=== PATIENT | female | born 1960 | race Hispanic/Latino ===

== ENCOUNTER 2018-04-03 19:31 | Emergency (ER) | payer OTHER ==
[2018-04-03 20:29] LABS: APPEARANCE,URINE Clear (CLEAR); BILIRUBIN,URINE Negative (NEGATIVE); COLOR,URINE Yellow (YELLOW); GLUCOSE, URINE (UA) Negative (NEGATIVE); KETONES,URINE Negative (NEGATIVE); LEUKOCYTE ESTERASE ,URINE Moderate (NEGATIVE); NITRATE,URINE Negative (NEGATIVE); OCCULT BLOOD,URINE Negative (NEGATIVE); PH,URINE 7.5 (5.0-8.0); PROTEIN,URINE Negative (NEGATIVE); UROBILINOGEN,URINE 0.2 mg/dL (0.2-1.0)
[2018-04-03 20:31] LABS: BASOPHILS % (AUTO) 0.5 % (0.0-5.0); HEMATOCRIT 40.3 % (36-48); LYMPHOCYTES % (AUTO) 33.3 % (21.0-51.0); MEAN CORPUSCULAR HEMOGLOBIN 31.2 pg (27.0-33.0); MEAN CORPUSCULAR HGB CONC 33.4 g/dL (32.0-36.0); MEAN CORPUSCULAR VOLUME 93.2 fL (79-99); MONOCYTES % (AUTO) 9.9 % (3.0-13.0); NEUTROPHILS % (AUTO) 54.3 % (40.0-77.0); PLATELET COUNT (AUTO) 287 K/uL (130-400); RED BLOOD CELL COUNT(AUTO) 4.32 MIL/uL (4.00-5.50); RED CELL DISTRIBUTION WIDTH 13.3 % (11.0-15.5); WHITE BLOOD COUNT (AUTO) 9.3 K/uL (4.8-10.8)
[2018-04-03 20:35] LABS: BACTERIA,URINE None Seen /HPF (None Seen); RBC,URINE None Seen /HPF (0-1); SQUAMOUS EPITHELIAL CELL,UR 0-2 /HPF (0-2); WBC,URINE 0-1 /HPF (0-1)
[2018-04-03 20:38] LABS: AMPHET/METH SCREEN,URINE NEGATIVE (NEGATIVE); BARBITURATE SCREEN, URINE NEGATIVE (NEGATIVE); BENZODIAZEPINES SCREEN,URINE NEGATIVE (NEGATIVE); CANNABINOID SCREEN,URINE NEGATIVE (NEGATIVE); COCAINE SCREEN,URINE NEGATIVE (NEGATIVE); OPIATE SCREEN,URINE NEGATIVE (NEGATIVE); PHENCYCLIDINE SCREEN,URINE NEGATIVE (NEGATIVE)
[2018-04-03 20:39] LABS: CREATININE 0.8 mg/dL (0.5-1.5); POTASSIUM 3.9 mmol/L (3.5-5.1)
[2018-04-03 20:51] LABS: B-TYPE NATRIURETIC PEPTIDE 8 pg/mL (0-100)
[2018-04-03 20:54] LABS: ALBUMIN 4.2 g/dL (3.5-5.0); BILIRUBIN,TOTAL 0.2 mg/dL (0.2-1.0); CREATINE KINASE MB 1.6 ng/mL (0.5-3.6); TOTAL PROTEIN, SERUM 7.7 g/dL (6.0-8.3)
== END 2018-04-03 21:26 | disposition home or self-care (01) ==
LOC: EDH 19:31
DX: R42 Dizziness and giddiness (principal); I10 Essential (primary) hypertension; Z72.0 Tobacco use
CPT/HCPCS: 36415; 71045; 80053; 80305; 81001; 82550; 82553; 83880; 85025; 93005

== ENCOUNTER 2021-09-17 12:03 | Inpatient (IN) | payer SELFPAY ==
[~2021-09-17] VITALS: Ht 154.9 cm; Wt 41.1 kg
[2021-09-17 12:42] LABS: APPEARANCE,URINE Clear (CLEAR); BILIRUBIN,URINE Negative (NEGATIVE); COLOR,URINE Yellow (YELLOW); GLUCOSE, URINE (UA) Negative (NEGATIVE); KETONES,URINE Negative (NEGATIVE); LEUKOCYTE ESTERASE ,URINE Moderate (NEGATIVE); NITRATE,URINE Negative (NEGATIVE); OCCULT BLOOD,URINE Trace (NEGATIVE); PH,URINE 6.5 (5.0-8.0); PROTEIN,URINE Negative (NEGATIVE); UROBILINOGEN,URINE 0.2 mg/dL (0.2-1.0)
[2021-09-17 12:55] LABS: BACTERIA,URINE Rare /HPF (None Seen); RBC,URINE 0-1 /HPF (0-1); SQUAMOUS EPITHELIAL CELL,UR Rare /HPF (0-2)
[2021-09-17 13:28] LABS: BASOPHILS % (AUTO) 0.7 % (0.0-5.0); EOSINOPHILS % (AUTO) 0.2 % (0.0-8.0); HEMATOCRIT 37.4 % (36-48); LYMPHOCYTES % (AUTO) 9.2 % (21.0-51.0); MEAN CORPUSCULAR HEMOGLOBIN 30.8 pg (27.0-33.0); MEAN CORPUSCULAR HGB CONC 33.2 g/dL (32.0-36.0); MEAN CORPUSCULAR VOLUME 92.8 fL (79-99); MONOCYTES % (AUTO) 5.2 % (3.0-13.0); NEUTROPHILS % (AUTO) 84.3 % (40.0-77.0); PLATELET COUNT (AUTO) 323 K/uL (130-400); RED BLOOD CELL COUNT(AUTO) 4.03 MIL/uL (4.00-5.50); RED CELL DISTRIBUTION WIDTH 12.7 % (11.0-15.5); WHITE BLOOD COUNT (AUTO) 12.3 K/uL (4.8-10.8)
[2021-09-17] MEDS ORDERED: MORPHINE 2 MG SYG IVP ONE (13:30)
[2021-09-17] MEDS ORDERED: 0.9% NACL 500ML IV.SOLN 500 ML IV ONE (13:30)
[2021-09-17] MEDS ORDERED: ONDANSETRON 4MG INJ IVP ONE (13:30)
[2021-09-17 13:43] LABS: CREATININE 0.7 mg/dL (0.5-1.5); POTASSIUM 4.5 mmol/L (3.5-5.1)
[2021-09-17 13:48] LABS: ALBUMIN 3.8 g/dL (3.5-5.0); BILIRUBIN,TOTAL 0.1 mg/dL (0.2-1.0); TOTAL PROTEIN, SERUM 7.5 g/dL (6.0-8.3)
[2021-09-17] MEDS ORDERED: KETOROLAC 30MG VIAL (30MG/ML) ONE (14:37)
[2021-09-17] MEDS ORDERED: KETOROLAC 30MG VIAL (30MG/ML) IV ONE (15:00)
[2021-09-17] MEDS ORDERED: MORPHINE 4 MG SYG ONE (15:30)
[2021-09-17] MEDS ORDERED: HYDROMORPHONE 0.5 MG SYG (0.5MG/0.5ML) ONE (17:36)
[2021-09-17] MEDS ORDERED: HYDROMORPHONE 0.5 MG SYG (0.5MG/0.5ML) IVP ONE (18:00)
[2021-09-17] MEDS ORDERED: MIDAZOLAM HCL 1 MG/ML 2ML VIAL ONE (18:00)
[2021-09-17] MEDS ORDERED: MIDAZOLAM HCL 1 MG/ML 2ML VIAL IVP ONE (18:30)
[2021-09-17] MEDS: LACTATED RINGERS 1000ML 1,000 ML IV SCH (20:08)
[2021-09-17] MEDS: CEFTRIAXONE 1G VIAL IVP SCH (20:08)
[2021-09-17] MEDS: FAMOTIDINE 20MG VIAL IV SCH (20:08)
[2021-09-17] MEDS: MORPHINE 2 MG SYG IV PRN (21:07)
[2021-09-17 23:15] VITALS: BP 157/80
[2021-09-18] VITALS (22 sets, daily range): BP systolic 146–169; BP diastolic 65–92
[2021-09-18] MEDS: MORPHINE 2 MG SYG IV PRN ×5 (00:45→23:47)
[2021-09-18] MEDS: ONDANSETRON 4MG INJ IVP PRN (00:45)
[2021-09-18] MEDS: LACTATED RINGERS 1000ML 1,000 ML IV SCH ×2 (05:00→05:04)
[2021-09-18 05:28] LABS: HEMATOCRIT 39.2 % (36-48); MEAN CORPUSCULAR HEMOGLOBIN 30.7 pg (27.0-33.0); MEAN CORPUSCULAR HGB CONC 33.4 g/dL (32.0-36.0); MEAN CORPUSCULAR VOLUME 91.8 fL (79-99); RED BLOOD CELL COUNT(AUTO) 4.27 MIL/uL (4.00-5.50); RED CELL DISTRIBUTION WIDTH 12.7 % (11.0-15.5); WHITE BLOOD COUNT (AUTO) 14.9 K/uL (4.8-10.8)
[2021-09-18 05:34] LABS: CREATININE 0.6 mg/dL (0.5-1.5); POTASSIUM 3.9 mmol/L (3.5-5.1)
[2021-09-18] MEDS: FAMOTIDINE 20MG VIAL IV SCH ×2 (08:54→21:00)
[2021-09-18] MEDS: CEFTRIAXONE 1G VIAL IVP SCH ×2 (19:30→20:18)
[2021-09-18] MEDS ORDERED: NEOSTIGMINE 5MG/5ML SYR IV ONE (19:48)
[2021-09-18] MEDS ORDERED: SUCCINYLCHOLINE CHLORIDE 20 MG/ML 10 ML VIAL ONE (19:48)
[2021-09-18] MEDS ORDERED: GLYCOPYRROLATE 1 MG/5 ML SYRINGE ONE (19:48)
[2021-09-18] MEDS ORDERED: ONDANSETRON 4MG INJ ONE (19:48)
[2021-09-18] MEDS ORDERED: PROPOFOL 10 MG/ML 20ML VIAL IV ONE (19:48)
[2021-09-18] MEDS ORDERED: LIDOCAINE PF 100MG/5ML (2%) SYRINGE 5ML ONE (19:48)
[2021-09-18] MEDS ORDERED: DEXAMETHASONE SOD PHOSPHATE 4 MG/ML 1ML VIAL ONE (19:48)
[2021-09-18] MEDS ORDERED: ROCURONIUM 10MG/1ML SYR 10 MG/ML ML ONE (19:48)
[2021-09-18] MEDS ORDERED: FENTANYL CITRATE PF 50 MCG/1 ML 2ML VIAL ONE (19:50)
[2021-09-18] MEDS ORDERED: MIDAZOLAM HCL 1 MG/ML 2ML VIAL ONE (19:50)
[2021-09-18] MEDS ORDERED: BUPIVACAINE/PF 0.25% 30ML VIAL IJ ONE (19:52)
[2021-09-18] MEDS ORDERED: LIDOCAINE HCL 1% 20 ML VIAL ONE (19:52)
[2021-09-18] MEDS ORDERED: MEPERIDINE-PF 25 MG/ML SYG ONE ×2 (21:48→21:58)
[2021-09-19] VITALS (10 sets, daily range): BP systolic 119–168; BP diastolic 56–82
[2021-09-19] MEDS: LACTATED RINGERS 1000ML 1,000 ML IV SCH ×3 (01:07→16:39)
[2021-09-19] MEDS: MORPHINE 2 MG SYG IV PRN ×3 (03:20→16:39)
[2021-09-19 04:39] LABS: HEMATOCRIT 36.4 % (36-48); MEAN CORPUSCULAR HEMOGLOBIN 30.9 pg (27.0-33.0); MEAN CORPUSCULAR HGB CONC 35.2 g/dL (32.0-36.0); MEAN CORPUSCULAR VOLUME 87.9 fL (79-99); RED BLOOD CELL COUNT(AUTO) 4.14 MIL/uL (4.00-5.50); RED CELL DISTRIBUTION WIDTH 12.4 % (11.0-15.5); WHITE BLOOD COUNT (AUTO) 21.9 K/uL (4.8-10.8)
[2021-09-19 04:47] LABS: CREATININE 0.6 mg/dL (0.5-1.5); POTASSIUM 3.6 mmol/L (3.5-5.1)
[2021-09-19] MEDS: FAMOTIDINE 20MG VIAL IV SCH ×2 (08:31→20:54)
[2021-09-19] MEDS: ONDANSETRON 4MG INJ IVP PRN (16:38)
[2021-09-19] MEDS: CEFTRIAXONE 1G VIAL IVP SCH (20:54)
[2021-09-20 03:34] VITALS: BP 113/64
[2021-09-20 04:53] LABS: HEMATOCRIT 32.9 % (36-48); MEAN CORPUSCULAR HEMOGLOBIN 30.6 pg (27.0-33.0); MEAN CORPUSCULAR HGB CONC 33.7 g/dL (32.0-36.0); MEAN CORPUSCULAR VOLUME 90.6 fL (79-99); RED BLOOD CELL COUNT(AUTO) 3.63 MIL/uL (4.00-5.50); RED CELL DISTRIBUTION WIDTH 12.6 % (11.0-15.5); WHITE BLOOD COUNT (AUTO) 11.8 K/uL (4.8-10.8)
[2021-09-20 05:09] LABS: CREATININE 0.6 mg/dL (0.5-1.5); POTASSIUM 3.6 mmol/L (3.5-5.1)
[2021-09-20] MEDS: ONDANSETRON 4MG INJ IVP PRN (05:45)
[2021-09-20] MEDS: MORPHINE 2 MG SYG IV PRN (05:45)
[2021-09-20] MEDS: LACTATED RINGERS 1000ML 1,000 ML IV SCH (07:01)
[2021-09-20] MEDS ORDERED: ACET1TAB25 PO (07:36)
[2021-09-20 08:00] VITALS: BP 117/55
[2021-09-20] MEDS: FAMOTIDINE 20MG VIAL IV SCH (09:09)
[2021-09-20 11:46] VITALS: BP 131/64
[2021-09-20] MEDS ORDERED: AMOX-429 PO (13:28)
[2021-09-20 16:00] VITALS: BP 113/59
== END 2021-09-20 16:30 | disposition home or self-care (01) | DRG 351 ==
LOC: EDH 12:03 → EDHIP 12:04 → 3BH 21:29
PROVIDERS: ADMIT Hospitalist; ATTEND Hospitalist
PROC: 0YQ80ZZ Repair Left Femoral Region, Open Approach (ICD-10-PCS; principal; 2021-09-18 20:32)
DX: K41.30 Unilateral femoral hernia, with obstruction, without gangrene, not specified as recurrent (principal); N39.0 Urinary tract infection, site not specified; K59.00 Constipation, unspecified; Z20.822 Contact with and (suspected) exposure to COVID-19; F17.210 Nicotine dependence, cigarettes, uncomplicated; Z90.49 Acquired absence of other specified parts of digestive tract; Z81.8 Family history of other mental and behavioral disorders
CPT/HCPCS: 36415; 71045; 74176; 80048; 80053; 81001; 82550; 83605; 83690; 84484; 85025; 85027; 86850; 86900; 86901; 87088; 87635; 93005; A4344; A4606; G0378; J0330; J0696; J1100; J1170; J1885; J2001; J2175; J2250; J2270; J2405; J2704; J2710; J3010; J3490; J7120

== ENCOUNTER 2024-11-12 20:02 | Emergency (ER) | payer SELFPAY ==
[~2024-11-12] VITALS: Ht 152.4 cm; Wt 59.0 kg
[~2024-11-12 20:02] MED LIST: ACET-2079 PO; AMOX-429 PO
--- NOTE | 2024-11-12 20:27 | ERN ---
ED Note History of Present Illness Stated Complaint: SEIZURE AT 1900 Chief Complaint: Seizure Time Seen by MD: 20:09 Dictation: This is a 64-year-old female who was brought into the emergency room accompanied by her son who indicated that patient had a witnessed seizure at 7:00 p.m.. Apparently similar episode with a symmetric tonic-clonic activity happened a few years ago. Seizure lasted about 1-1-1/2 minutes. She does not have a known history of seizure activity. No history of any head trauma no fevers chills or rigors. She is not on any regular medications. No history of any alcohol abuse. Temperature 97.3 pulse 127 respirations 20 blood pressure 167/84 with a pulse oximetry of 95% on room air Past medical history significant for a incarcerated inguinal hernia repair. She is also a daily cigarette smoker Allergies: Coded Allergies: No Known Drug Allergies (Verified Allergy, 06/24/12) Home Meds Active Scripts Amoxicillin/Potassium Clav (Augmentin 875-125 Tablet) 1 Each Tablet, 1 EACH PO BID, #10 TAB 0 Refills Prov:TAHIR HAILE 09/20/21 Acetaminophen with Codeine (Acetaminophen-Cod #3 Tablet) 1 Each Tablet, 1 EACH PO Q6HPRN PRN for MODERATE PAIN (4-6), #8 TAB 0 Refills Prov:TAHIR HAILE 09/20/21 Past Medical History Past Medical History: No Pertinent History Surgical History: Other Surgical History Other: HERNIA Family History: Negative Social History: Smokers, Lives with family History: Not Applicable RN Note Reviewed/Agreed w/PFSH: Yes Review of System Dictation Constitutional: Negative for fever,chills, and weight loss Eyes: Negative for injury, pain,redness, and discharge ENT: Negative for injury,pain or swelling Cardiovascular: Negative for chest pain, palpitations, and edema Respiratory: Negative for shortness of breath, cough, and wheezing, Abdomen/GI: Negative for abdominal pain, nausea, vomiting, diarrhea, and constipation Back: Negative for injury and pain : Negative for injury, bleeding and discharge MS/Extremity: Negative for injury and deformity Skin: Negative for rash, and discoloration Neuro: Negative for headache, weakness, numbness, tingling, and seizure Psych: Negative for suicide ideation, homicidal ideation, and hallucinations Initial Vital Sign VS Vital Signs Date Time Temp Pulse Resp B/P (MAP) Pulse Ox O2 Delivery O2 Flow Rate FiO2 11/12/24 20:03 97.3 127 20 167/84 95 Room Air 11/12/24 20:52 0 21 Physical Exam Dictation General: awake, alert, NAD Head/Face: Normocephalic, atraumatic Eyes: PERRL, EOMI, vision at baseline ENT: oral cavity clear, TMs clear, no signs of infection Neck: Trachea midline, supple, no nuchal rigidity Cardiovascular: RRR, normal S1/S2, No MRGs, no JVD Respiratory: CTAB, no respiratory distress, No rales or wheezes Abdomen: Soft, non-tender, non-distended, normal bowel sounds, no guarding or rebound. Skin: Warm, dry, normal turgor, no rash MS/Extremity: Pulses equal, no cyanosis, neurovascular intact, FROM Neuro: COAx4, GCS 15, strength 5/5, CN 2-12 intact, normal cerebellar exam, normal gait, Psych: Normal behavior, mood, and affect normal Extremities-trace edema without any palpable cords, Homans sign is negative Results (Laboratory/Radiology) Laboratory/Radiology Laboratory Tests Test 11/12/24 20:38 11/12/24 20:40 White Blood Count 12.2 K/uL (4.8-10.8) H Red Blood Count 4.13 MIL/uL (4.00-5.50) Hemoglobin 13.0 g/dL (12.0-16.0) Hematocrit 37.8 % (36-48) Mean Corpuscular Volume 91.5 fL (79-99) Mean Corpuscular Hemoglobin 31.5 pg (27.0-33.0) Mean Corpuscular Hemoglobin Concent 34.4 g/dL (32.0-36.0) Red Cell Distribution Width 12.9 % (11.0-15.5) Platelet Count 295 K/uL (130-400) Mean Platelet Volume 9.8 fL (7.5-10.5) Immature Granulocyte % (Auto) 0.3 % (0-1) Neutrophils (%) (Auto) 67.0 % (40.0-77.0) Lymphocytes (%) (Auto) 21.1 % (21.0-51.0) Monocytes (%) (Auto) 9.6 % (3.0-13.0) Eosinophils (%) (Auto) 1.3 % (0.0-8.0) Basophils (%) (Auto) 0.7 % (0.0-5.0) Neutrophils # (Auto) 8.2 K/uL (1.8-7.7) H Lymphocytes # (Auto) 2.6 K/uL (1.0-4.8) Monocytes # (Auto) 1.2 K/uL (0.1-1.0) H Eosinophils # (Auto) 0.16 K/uL (0.00-0.70) Basophils # (Auto) 0.08 K/uL (0.00-0.20) Absolute Immature Granulocyte (auto 0.04 K/uL (0-1) Nucleated Red Blood Cells 0.0 % (0.0-0.19) Sodium Level 137 mmol/L (136-145) Potassium Level 4.3 mmol/L (3.5-5.1) Chloride Level 98 mmol/L (101-111) L Carbon Dioxide Level 31 mmol/L (21-32) Blood Urea Nitrogen 15 mg/dL (7-18) Creatinine 0.6 mg/dL (0.5-1.0) Glomerular Filtration Rate Calc 100 mL/min (>90) Random Glucose 94 mg/dL (70-105) Total Calcium 9.5 mg/dL (8.5-10.1) Magnesium Level 1.90 mg/dL (1.80-2.40) Total Creatine Kinase 84 U/L (21-232) Troponin I High Sensitivity 5 ng/L (4-50) Salicylates Level 3.4 mg/dL (2.8-20.0) Serum Alcohol 7 mg/dL (0-10) Urine Color LIGHT-YELLOW (YELLOW) Urine Appearance CLEAR (CLEAR) Urine pH 7.0 (5.0-8.0) Urine Specific Rodney 1.017 (1.001-1.031) Urine Protein NEGATIVE mg/dL (NEGATIVE) Urine Glucose (UA) NEGATIVE mg/dL (NEGATIVE) Urine Ketones NEGATIVE mg/dL (NEGATIVE) Urine Occult Blood +- (TRACE) (NEGATIVE) H Urine Nitrate NEGATIVE (NEGATIVE) Urine Bilirubin NEGATIVE mg/dL (NEGATIVE) Urine Urobilinogen 0.2 mg/dL (0.2-1.0) Urine Leukocyte Esterase NEGATIVE Tania/uL Urine RBC 6-10 /HPF (0-1) H Urine WBC 0-1 /HPF (0-1) Urine Squamous Epithelial Cells RARE /HPF (0-2) Urine Bacteria None /HPF (None Seen) Urine Opiates Screen NEGATIVE (NEGATIVE) Urine Barbiturates Screen NEGATIVE (NEGATIVE) Urine Phencyclidine Screen NEGATIVE (NEGATIVE) Urine Amphetamines Screen NEGATIVE (NEGATIVE) Urine Benzodiazepines Screen NEGATIVE (NEGATIVE) Urine Cocaine Screen NEGATIVE (NEGATIVE) Urine Marijuana (THC) Screen NEGATIVE (NEGATIVE) Labs Reviewed?: Yes EKG Comment: Twelve lead EKG done on 11/12/2024 at 8:28 p.m. showed a heart rate of 127, NM 142, QRS duration 81, QT/QTC to 97/432 Impression sinus tachycardia possible LVH. No acute ST elevations or deep ST depressions. Interpreted by ER MD Dr. Haley CT Scan Comment: PATIENT: RAJNI MOTT MR#: [id number] : 1960 SEX: F AGE: 64 LOCATION: [facility] ORDER 23 STATUS: REG ER REPORT#: [id number] SERVICE 21 REASON: new onset seizure ORDERING PHYSICIAN: EVELYN HALEY MD PROCEDURE: HEAD WO - CT HEAD/BRAIN W/O CONTRAST CT HEAD/BRAIN W/O CONTRAST INDICATION: new onset seizure TECHNIQUE: CT HEAD/BRAIN W/O CONTRAST. CT was performed with one or more of the following dose reduction techniques: Automated exposure control, adjustment of the mA and/or kV according to the patient's size, or use of the iterative reconstruction technique. Comparison: None FINDINGS: The ventricles and extra ventricular CSF spaces are within normal limits. No mass effect, midline shift or herniation. No extra axial collection. No acute intracranial bleed. The visualized paranasal sinuses and mastoid air cells are normally aerated. IMPRESSION: No acute intracranial findings. DICTATED BY: JAMES FLYNN MD DATE: 11/12/242147 ELECTRONICALLY SIGNED BY: JAMES FLYNN MD DATE: 11/12/242150 ED Course ED Course Orders Procedure Category Date Status Time 12 Lead Ekg Tracing- EKG 11/12/24 Logged Technical 20:11 Troponin I High LAB 11/12/24 Complete Sensitivity 20:11 Magnesium LAB 11/12/24 Complete 20:11 Cbc With Differential LAB 11/12/24 Complete 20:11 Basic Metabolic Panel LAB 11/12/24 Complete 20:11 Urinalysis Profile LAB 11/12/24 Complete 20:11 Drug Screen Urine LAB 11/12/24 Complete 20:11 Creatine Kinase, Total LAB 11/12/24 Complete 20:11 Ct Head/Brain W/O CT 11/12/24 Resulted Contrast 20:22 0.9%Nacl 1000ml (Ns PHA 11/12/24 In Process 1000ml) 20:30 Lorazepam 2 Mg PHA 11/12/24 Complete (Ativan) 20:30 Alcohol, Blood LAB 11/12/24 Complete 20:22 Salicylate LAB 11/12/24 Complete 20:22 Thiamine Hcl (Vitamin PHA 11/12/24 Complete B-1) 22:30 Current Medications Medications (Trade) Dose Ordered Sig/Deysi Route PRN Reason Start Time Stop Time Status Last Admin Dose Admin Lorazepam (AtiVAN) 2 mg ONCE ONCE IVP 11/12/24 20:30 11/12/24 20:31 DC 11/12/24 21:02 Sodium Chloride 1,000 ml @ 125 mls/hr ONCE ONCE IV 11/12/24 20:30 11/13/24 04:29 11/12/24 21:02 Thiamine HCl (Vitamin B-1) 100 mg ONCE ONCE IVP 11/12/24 22:30 11/12/24 22:31 DC 11/12/24 22:30 Vital Signs Date Time Temp Pulse Resp B/P (MAP) Pulse Ox O2 Delivery O2 Flow Rate FiO2 11/12/24 20:52 98.4 122 12 167/80 98 Room Air* 0 21 11/12/24 20:03 97.3 127 20 167/84 95 Room Air We will perform diagnostic labs, advanced imaging and administer medications according to the patient's complaint. Once the results are available, will review and personally interpreted the labs to rule out any acute life- threatening emergency the trach require immediate intervention and treatment. I will then re-evaluate the patient after treatment and diagnostic exams have return to determine whether the patient requires any further testing, can safely be discharged home or need further admission to hospital for additional treatment and evaluation. Labs reviewed CBC shows a white count of 12.2 urinalysis is negative for any infection BNP 7 shows a bicarb of 31 BUN and creatinine are 15 and 0.6 magnesium 1.9 urine drug screen is negative salicylate levels are 3.4 ETOH level is 7 10:32 p.m. transfer has been initiated to [facility] for neurological evaluation and further workup including EEG MRI etcetera. I spoke with Dr. Johnston emergency room physician and updated her on available information and imaging studies and she has accepted the patient for ED to ED transfer. Transport being arranged by the warehouse worker 2nd shift Medical Decision Making MDM MDM: Differential diagnosis: New onset seizures-early Alzheimer's, patient has been on tramadol which can decrease the seizure threshold, infection, dehydration Rationale: Tests considered and ordered secondary to shared decision making include: labs, ECG and radiology Previous outside records reviewed: Old ER visits. Risk of complication and/or morbidity or mortality of patient management: None Medications-Per medication reconciliation Need for hospitalization: Patient does meet criteria for hospitalization. Need for emergency major/minor surgery: No There are no social concerns with this patient. Prescription drug management Prescriptions will include symptomatic care Patient's prior external medical records from other ER visits were reviewed by me as indicated. Prior testing and results from previous visits were reviewed. Prior tests were taken into account with medical decision making and resource utilization, independent historian/historians were used to obtain complete medical history. I independently interpreted the test that were performed, results were reviewed by me and considered findings on radiology if ordered. Medical management and examination interpretation discussions were had by me with other qualified healthcare professionals as indicated for the patient's care. DUE TO LACK OF NEUROLOGY SERVICES AT THIS FACILITY WE WILL TRANSFER THE PATIENT OUT TO FACILITY FOR FURTHER EVALUATION OF THE NEW ONSET SEIZURES INCLUDING EEG MRI [facility] Problem List Problem List: (1) New onset seizure (2) Tobacco abuse (3) COPD (chronic obstructive pulmonary disease) DX & DISP Disposition: Transfer Decision to Admit Time: 22:09 Departure Impression: Primary Impression: New onset seizure Additional Impressions: Tobacco abuse, COPD (chronic obstructive pulmonary disease) Condition: Stable Additional Instructions: The patient has been informed about all the diagnostic tests and procedures carried out in the emergency room today and has confirmed understanding of the results. Patient will be transferred to a facility that provides a higher level of care since such services are not accessible locally or within our immediate community. The patient is alert oriented and not experiencing any acute distress. There are no signs of sepsis and patient's hemodynamic status is stable at the moment. Medically, the patient is considered stable for transfer Referrals: SELF,REFERRAL (PCP) EVELYN HALEY MD Nov 12, 2024 20:27
[2024-11-12 20:51] LABS: BASOPHILS # (AUTO) 0.08 K/uL (0.00-0.20); BASOPHILS % (AUTO) 0.7 % (0.0-5.0); EOSINOPHILS # (AUTO) 0.16 K/uL (0.00-0.70); EOSINOPHILS % (AUTO) 1.3 % (0.0-8.0); HEMATOCRIT 37.8 % (36-48); IMMATURE GRANULOCYTE ABSOLUTE 0.04 K/uL (0-1); LYMPHOCYTES # (AUTO) 2.6 K/uL (1.0-4.8); LYMPHOCYTES % (AUTO) 21.1 % (21.0-51.0); MEAN CORPUSCULAR HEMOGLOBIN 31.5 pg (27.0-33.0); MEAN CORPUSCULAR HGB CONC 34.4 g/dL (32.0-36.0); MEAN CORPUSCULAR VOLUME 91.5 fL (79-99); MONOCYTES # (AUTO) 1.2 K/uL (0.1-1.0); MONOCYTES % (AUTO) 9.6 % (3.0-13.0); NEUTROPHILS # (AUTO) 8.2 K/uL (1.8-7.7); PLATELET COUNT (AUTO) 295 K/uL (130-400); RED BLOOD CELL COUNT(AUTO) 4.13 MIL/uL (4.00-5.50); RED CELL DISTRIBUTION WIDTH 12.9 % (11.0-15.5); WHITE BLOOD COUNT (AUTO) 12.2 K/uL (4.8-10.8)
[2024-11-12 20:52] VITALS: TEMP 98.5
[2024-11-12] MEDS: 0.9%NACL 1000ML 1,000 ML IV ONE (21:02)
[2024-11-12] MEDS: LORazepam 2 MG/ML 1 ML VIAL IVP ONE (21:02)
[2024-11-12 21:05] LABS: CREATININE 0.6 mg/dL (0.5-1.0); POTASSIUM 4.3 mmol/L (3.5-5.1)
[2024-11-12 21:10] LABS: MAGNESIUM 1.9 mg/dL (1.80-2.40)
[2024-11-12 21:16] LABS: SALICYLATE 3.4 mg/dL (2.8-20.0)
[2024-11-12 21:18] LABS: APPEARANCE,URINE CLEAR (CLEAR); BILIRUBIN,URINE NEGATIVE (NEGATIVE); COLOR,URINE LIGHT-YELLOW (YELLOW); GLUCOSE, URINE (UA) NEGATIVE (NEGATIVE); KETONES,URINE NEGATIVE (NEGATIVE); LEUKOCYTE ESTERASE ,URINE NEGATIVE Leu/uL (NEGATIVE); NITRATE,URINE NEGATIVE (NEGATIVE); PROTEIN,URINE NEGATIVE (NEGATIVE); UROBILINOGEN,URINE 0.2 mg/dL (0.2-1.0)
[2024-11-12 21:22] LABS: ADD UA MICROSCOPIC YES
[2024-11-12 21:23] LABS: SQUAMOUS EPITHELIAL CELL,UR RARE /HPF (0-2); WBC,URINE 0-1 /HPF (0-1)
[2024-11-12 21:26] LABS: AMPHET/METH SCREEN,URINE NEGATIVE (NEGATIVE); BARBITURATE SCREEN, URINE NEGATIVE (NEGATIVE); BENZODIAZEPINES SCREEN,URINE NEGATIVE (NEGATIVE); CANNABINOID SCREEN,URINE NEGATIVE (NEGATIVE); COCAINE SCREEN,URINE NEGATIVE (NEGATIVE); OPIATE SCREEN,URINE NEGATIVE (NEGATIVE); PHENCYCLIDINE SCREEN,URINE NEGATIVE (NEGATIVE)
--- NOTE | 2024-11-12 21:51 | HMCIMG ---
CT HEAD/BRAIN W/O CONTRAST INDICATION: new onset seizure TECHNIQUE: CT HEAD/BRAIN W/O CONTRAST. CT was performed with one or more of the following dose reduction techniques: Automated exposure control, adjustment of the mA and/or kV according to the patient's size, or use of the iterative reconstruction technique. Comparison: None FINDINGS: The ventricles and extra ventricular CSF spaces are within normal limits. No mass effect, midline shift or herniation. No extra axial collection. No acute intracranial bleed. The visualized paranasal sinuses and mastoid air cells are normally aerated. IMPRESSION: No acute intracranial findings.
--- NOTE | 2024-11-12 22:13 | NUR ---
SPOKE WITH CITLALI AT [facility]. TRANSFER REQUEST FOR NEUROLOGY INITIATED.
[2024-11-12] MEDS: THIAMINE HCL 100 MG/ML 2ML VIAL IVP ONE (22:30)
--- NOTE | 2024-11-12 22:31 | NUR ---
PT ACCEPTED BY DR. JENARO IBARRA AT [facility]- FOR ER TO ER TRANSFER.
--- NOTE | 2024-11-12 22:39 | NUR ---
[facility] CONTACTED FOR TRANSFER TO [facility] ER
--- NOTE | 2024-11-12 23:14 | NUR ---
REPORT GIVEN TO AYAAN LINDQUIST AT [facility] FOR ER-ER TRANSFER.
[2024-11-12 23:41] VITALS: BP 117/58; PULSE 96; RESP 16; O2SAT 97
--- NOTE | 2024-11-13 00:04 | NUR ---
PT DAUGHTER, RAMESH, LEAVING BEDSIDE AT THIS TIME. WILL CALL PT FAMILY WHEN PT GETS PICKED UP FOR THE TRANSFER. RAMESH (DAUGHTER) .
--- NOTE | 2024-11-13 00:36 | NUR ---
[facility] FOR ER-ER TRANSFER TO [facility].
--- NOTE | 2024-11-13 15:39 | EKG ---
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
== END 2024-11-13 00:44 | disposition short-term general hospital (02) ==
LOC: EDH 20:02
DX: R56.9 Unspecified convulsions (principal); J44.9 Chronic obstructive pulmonary disease, unspecified; F17.200 Nicotine dependence, unspecified, uncomplicated; Z79.899 Other long term (current) drug therapy
CPT/HCPCS: 99285; 96374; 70450; 96361; 96375; 82550; 83735; 84484; 80048; 80305; 85025; 81001; 36415; 93005; G0481; J7030; J3411; J2060

== ENCOUNTER 2025-06-05 17:53 | Emergency (ER) | payer OTHER ==
[~2025-06-05] VITALS: Ht 154.9 cm; Wt 36.3 kg
[2025-06-05 18:52] LABS: IMMATURE GRANULOCYTE ABSOLUTE 0.05 K/uL (0-1); NUCLEATED RED BLOOD CELLS 0.0 % (0.0-0.19); PLATELET COUNT (AUTO) 376 K/uL (130-400); RED BLOOD CELL COUNT(AUTO) 4.49 MIL/uL (4.00-5.50); RED CELL DISTRIBUTION WIDTH 13.4 % (11.0-15.5); WHITE BLOOD COUNT (AUTO) 12.5 K/uL (4.8-10.8)
[2025-06-05 18:59] LABS: CREATININE 0.7 mg/dL (0.5-1.0); GLOMERULAR FILTR. RATE CALC 96 mL/min (>90); GLUCOSE,RANDOM 104 mg/dL (70-105); SODIUM SERUM 145 mmol/L (136-145); UREA NITROGEN, BLOOD 36 mg/dL (7-18)
[2025-06-05 19:03] LABS: ALCOHOL, BLOOD < 3 mg/dL (0-10)
--- NOTE | 2025-06-05 19:20 | ERN ---
ED Note History of Present Illness Stated Complaint: ANXIETY, INSOMNIA, OUT OF TRAMADOL Chief Complaint: Suicidal Ideation Time Seen by MD: 18:03 Time Seen by Midlevel: 18:03 Dictation: The patient is a 65-year-old female with a history of appendectomy who presents to the emergency department with family for a suicide attempt earlier today. Patient reports that she wanted to stab herself with a knife. Patient reports that she has been going through withdrawals after she stopped taking tramadol and she reports some anxiety but denies any chest pain, denies nausea or vomiting. Patient reports insomnia. Patient denies homicidal ideations Allergies: Coded Allergies: No Known Drug Allergies (Verified Allergy, 06/24/12) Home Meds Active Scripts Nitrofurantoin Monohyd/M-Cryst (Macrobid 100 mg Capsule) 100 Mg Capsule, 1 CAP PO BID for 5 Days, #10 CAP 0 Refills Prov:GILDA LOCK CLOTHES WRINGER 06/06/25 Amoxicillin/Potassium Clav (Augmentin 875-125 Tablet) 1 Each Tablet, 1 EACH PO BID, #10 TAB 0 Refills Prov:TAHIR HAILE 09/20/21 Acetaminophen with Codeine (Acetaminophen-Cod #3 Tablet) 1 Each Tablet, 1 EACH PO Q6HPRN PRN for MODERATE PAIN (4-6), #8 TAB 0 Refills Prov:TAHIR HAILE 09/20/21 Past Medical History Past Medical History: Hypertension, Seizure Surgical History: Other Surgical History Other: HERNIA Family History: Negative Social History: Smokers, Lives with family History: Not Applicable RN Note Reviewed/Agreed w/PFSH: Yes Review of System Dictation Constitutional: Negative for fever,chills, and weight loss Eyes: Negative for injury, pain,redness, and discharge ENT: Negative for injury,pain or swelling Cardiovascular: Negative for chest pain, palpitations, and edema Respiratory: Negative for shortness of breath, cough, and wheezing, Abdomen/GI: Negative for abdominal pain, nausea, vomiting, diarrhea, and constipation Back: Negative for injury and pain : Negative for injury, bleeding and discharge MS/Extremity: Negative for injury and deformity Skin: Negative for rash, and discoloration Neuro: Negative for headache, weakness, numbness, tingling, and seizure Psych: Negative for homicidal ideation, and hallucinations positive for suicidal ideation Initial Vital Sign VS Vital Signs Date Time Temp Pulse Resp B/P (MAP) Pulse Ox O2 Delivery O2 Flow Rate FiO2 06/05/25 17:55 98.8 54 20 158/65 95 Room Air 0 06/05/25 18:00 21 Physical Exam Dictation Vital Signs reviewed General Appearance: Alert, oriented x 3, no acute distress, well developed, nourished. Head and Face: non-traumatic. Eyes: PERRL, pink conjunctivas, eyelid no trauma, anterior chamber with arcus senilis. Ears: Pinnas intact and no signs of trauma or erythema ear canals clear and no discharge TM no erythema Nose: No discharge, no bleeding. Oropharynx: Mouth normal, tongue pink. pharynx clear,no erythema, tonsils no exudates, no abscesses noted, mucous membrane moist Neck: Supple, non-tender, no thyromegaly, no masses, no JVD, no bruits Breast:Deferred Chest:No tenderness, no crepitus, no paradoxical movement, no retractions Lungs:Clear, well-ventilated, symmetric, no rales, no wheezing, no rhonchi, no stridor, good breath sounds bilaterally Heart: Regular rate, regular rhythm, no murmur, no gallops Vascular: no peripheral edema, Abdomen: Soft, positive bowel sounds, nondistended, no guarding, nontender, no rebound, no masses no hepatomegaly, no splenomegaly, no Mcdonald's sign, no hernias. Rectal: Deferred Genital: Deferred Neurological: Normal speech, motor function intact, sensory function intact Musculoskeletal: Neck nontender, full range of motion, back nontender, full range of motion, Extremities: nontender, full range of motion Skin: Color pink, dry, no turgor, no rash, no lacerations, no abrasions, no contusions. Lymphatic: Deferred Results (Laboratory/Radiology) Laboratory/Radiology Laboratory Tests Test 06/05/25 18:24 06/05/25 21:03 White Blood Count 12.5 K/uL (4.8-10.8) H Red Blood Count 4.49 MIL/uL (4.00-5.50) Hemoglobin 13.9 g/dL (12.0-16.0) Hematocrit 41.9 % (36-48) Mean Corpuscular Volume 93.3 fL (79-99) Mean Corpuscular Hemoglobin 31.0 pg (27.0-33.0) Mean Corpuscular Hemoglobin Concent 33.2 g/dL (32.0-36.0) Red Cell Distribution Width 13.4 % (11.0-15.5) Platelet Count 376 K/uL (130-400) Mean Platelet Volume 9.8 fL (7.5-10.5) Immature Granulocyte % (Auto) 0.4 % (0-1) Neutrophils (%) (Auto) 70.2 % (40.0-77.0) Lymphocytes (%) (Auto) 18.3 % (21.0-51.0) L Monocytes (%) (Auto) 10.2 % (3.0-13.0) Eosinophils (%) (Auto) 0.3 % (0.0-8.0) Basophils (%) (Auto) 0.6 % (0.0-5.0) Neutrophils # (Auto) 8.8 K/uL (1.8-7.7) H Lymphocytes # (Auto) 2.3 K/uL (1.0-4.8) Monocytes # (Auto) 1.3 K/uL (0.1-1.0) H Eosinophils # (Auto) 0.04 K/uL (0.00-0.70) Basophils # (Auto) 0.08 K/uL (0.00-0.20) Absolute Immature Granulocyte (auto 0.05 K/uL (0-1) Nucleated Red Blood Cells 0.0 % (0.0-0.19) Sodium Level 145 mmol/L (136-145) Potassium Level 4.7 mmol/L (3.5-5.1) Chloride Level 108 mmol/L (101-111) Carbon Dioxide Level 30 mmol/L (21-32) Blood Urea Nitrogen 36 mg/dL (7-18) H Creatinine 0.7 mg/dL (0.5-1.0) Glomerular Filtration Rate Calc 96 mL/min (>90) Random Glucose 104 mg/dL (70-105) Total Calcium 9.4 mg/dL (8.5-10.1) Total Creatine Kinase 79 U/L (21-232) Troponin I High Sensitivity 14 ng/L (4-50) Salicylates Level 2.8 mg/dL (2.8-20.0) Acetaminophen Level < 1 mcg/mL (10-30) L Serum Alcohol < 3 mg/dL (0-10) Urine Color LIGHT-YELLOW (YELLOW) Urine Appearance CLEAR (CLEAR) Urine pH 6.0 (5.0-8.0) Urine Specific [place] 1.021 (1.001-1.031) Urine Protein NEGATIVE mg/dL (NEGATIVE) Urine Glucose (UA) NEGATIVE mg/dL (NEGATIVE) Urine Ketones NEGATIVE mg/dL (NEGATIVE) Urine Occult Blood +- (TRACE) (NEGATIVE) H Urine Nitrate NEGATIVE (NEGATIVE) Urine Bilirubin NEGATIVE mg/dL (NEGATIVE) Urine Urobilinogen 0.2 mg/dL (0.2-1.0) Urine Leukocyte Esterase 500 Tania/uL (NEGATIVE) H Urine RBC 2-5 /HPF (0-1) H Urine WBC 51-100 /HPF (0-1) H Urine WBC Clumps (Auto) RARE /HPF (0-1) Urine Squamous Epithelial Cells FEW /HPF (0-2) Urine Bacteria RARE /HPF (None Seen) Urine Opiates Screen NEGATIVE (NEGATIVE) Urine Barbiturates Screen NEGATIVE (NEGATIVE) Urine Phencyclidine Screen NEGATIVE (NEGATIVE) Urine Amphetamines Screen NEGATIVE (NEGATIVE) Urine Benzodiazepines Screen NEGATIVE (NEGATIVE) Urine Cocaine Screen NEGATIVE (NEGATIVE) Urine Marijuana (THC) Screen NEGATIVE (NEGATIVE) REASON: sob ORDERING PHYSICIAN: GILDA LOCK PROCEDURE: CXR1VW - CHEST 1VW EXAM: CR Chest, 1 View. CLINICAL HISTORY: sob COMPARISON: 04/03/2018 FINDINGS: LUNGS: There is no mass, infiltrate, or acute pulmonary abnormality. PLEURAL SPACES: No evidence of pleural effusion or pneumothorax. MEDIASTINUM: The cardiomediastinal silhouette is within normal limits. BONES: No acute osseous abnormality. IMPRESSION: No acute cardiopulmonary pathology is evident. /[place] Labs Reviewed?: Yes EKG: (+) rhythm (Sinus tachycardia) EKG Comment: Date:06/05/2025 Time:1803 Ventricular rate:123 LA interval:99 QRS duration:53 QT/QTc:275/394 EKG interpretation: Sinus tachycardia Reviewed by ED Attending no STEMI ED Course ED Course Orders Procedure Category Date Status Time Cbc With Differential LAB 06/05/25 Complete 18:03 Basic Metabolic Panel LAB 06/05/25 Complete 18:03 Urinalysis Profile LAB 06/05/25 Complete 18:03 Drug Screen Urine LAB 06/05/25 Complete 18:03 Salicylate LAB 06/05/25 Complete 18:03 Alcohol, Blood LAB 06/05/25 Complete 18:03 Acetaminophen LAB 06/05/25 Complete 18:03 12 Lead Ekg Tracing- EKG 06/05/25 Logged Technical 18:07 Chest 1vw RAD 06/05/25 Resulted 18:07 Creatine Kinase, Total LAB 06/05/25 Complete 18:07 Troponin I High LAB 06/05/25 Complete Sensitivity 18:07 Suicide Precautions CPOE 06/05/25 Transmitted 18:07 0.9%Nacl 1000ml (Ns PHA 06/05/25 Complete 1000ml) 20:00 Hydroxyzine 25mg Tab PHA 06/05/25 Complete (Atarax 25mg Tab) 20:30 Culture Urine FRANCISCO 06/05/25 In Process 21:16 Ceftriaxone 1g Vial PHA 06/05/25 Complete (Rocephine 1g Inj) 21:30 Current Medications Medications (Trade) Dose Ordered Sig/Deysi Route PRN Reason Start Time Stop Time Status Last Admin Dose Admin Ceftriaxone Sodium (ROCEphine 1G INJ) 1 gm ONCE ONCE IVPB 06/05/25 21:30 06/05/25 21:31 DC 06/05/25 22:14 Hydroxyzine HCl (ATArax 25MG TAB) 25 mg ONCE ONCE PO 06/05/25 20:30 06/05/25 20:31 DC 06/05/25 20:11 Sodium Chloride 1,000 ml @ 0 mls/hr ONCE ONCE IV 06/05/25 20:00 06/05/25 20:01 DC 06/05/25 20:00 Vital Signs Date Time Temp Pulse Resp B/P (MAP) Pulse Ox O2 Delivery O2 Flow Rate FiO2 06/05/25 22:52 101 18 111/61 98 Room Air* 0 06/05/25 21:45 98.1 99 17 114/66 99 Room Air* 0 06/05/25 20:45 98.1 97 19 118/66 96 Room Air* 0 06/05/25 19:49 99 18 116/58 99 Room Air* 0 06/05/25 18:45 98.2 100 17 112/61 99 Room Air* 0 06/05/25 18:00 98.1 98 18 115/62 98 Room Air* 0 21 06/05/25 17:55 98.8 54 20 158/65 95 Room Air 0 Medical Decision Making MDM MDM: The patient is a 65-year-old female with a history of appendectomy who presents to the emergency department with family for a suicide attempt earlier today. Patient reports that she wanted to stab herself with a knife. Patient reports that she has been going through withdrawals after she stopped taking tramadol and she reports some anxiety but denies any chest pain, denies nausea or vomiting. Patient reports insomnia. Patient denies homicidal ideations. CBC showed mild leukocytosis, no anemia, chemistry showed negative troponin, negative CK level, urinalysis positive for leukocyte esterase. Patient was giving a dose of Rocephin. Toxicology negative. Chest x-ray showed no acute pathology. Patient was evaluated by alaina and christal Vuuel Darrell reports she does not meet criteria for inpatient and will follow up with her in 24 hours. Patient is under the care of her son and daughter. On physical exam patient is in no acute distress, nontoxic appearance. Stable vital signs. Explained discharge planning with patient and patient's family member they agree to follow up. Differential diagnosis: ACS, electrolyte imbalance, suicidal ideations, depression Need for hospitalization: Patient does not meet criteria for hospitalization. There are no social concerns with this patient. DX & DISP Disposition: Discharge Departure Impression: Primary Impression: Anxiety Additional Impression: UTI (urinary tract infection) Condition: Stable Scripts Nitrofurantoin Monohyd/M-Cryst (Macrobid 100 mg Capsule) 100 Mg Capsule 1 CAP PO BID for 5 Days, #10 CAP 0 Refills Prov: GILDA LOCK CLOTHES WRINGER 06/06/25 Additional Instructions: Please follow up with the behavior center in the next 24 hours. If anything worsens or changes please return to ER. You do have a urinary tract infection. Please take your antibiotics as prescribed. FOLLOW-UP WITH PRIMARY CARE PROVIDER IN 1 TO 2 DAYS. TAKE MEDICATIONS DIRECTED HERE IN THE EMERGENCY ROOM. OKAY TO CONTINUE HOME MEDICATIONS UNLESS OTHERWISE DISCUSSED DURING YOUR VISIT IN THE EMERGENCY ROOM TODAY. RETURN TO YOUR NEAREST EMERGENCY ROOM IF SYMPTOMS WORSEN OR IF THERE IS NO IMPROVEMENT. CALL 911 IF YOU NEED IMMEDIATE ASSISTANCE. TAKE TYLENOL [id number] NEEDED AND IF NO CONTRAINDICATIONS ARE PRESENT. INCREASE ORAL HYDRATION. A WOUND CULTURE OR URINE CULTURE WAS ORDERED HERE IN THE EMERGENCY ROOM DEPARTMENT PLEASE FOLLOW-UP WITH PRIMARY CARE PROVIDER AND ADVISE THEM TO GET REPEAT PORTS FROM OUR FACILITY. IF YOU HAD ANY NASREEN WRAP/SPLINTS THAT WERE APPLIED HERE, PLEASE DO NOT REMOVE THEM UNTIL YOU SEE YOUR PRIMARY CARE OR SPECIALTY. Referrals: SELF,REFERRAL (PCP) Time of Disposition: 00:05 I have reviewed the case, and I agree with, Diagnosis and Plan GILDA LOCK CLOTHES WRINGER Jun 05, 2025 19:20
[2025-06-05] MEDS: 0.9%NACL 1000ML 1,000 ML IV ONE (20:00)
--- NOTE | 2025-06-05 20:17 | HMCIMG ---
EXAM: CR Chest, 1 View. CLINICAL HISTORY: sob COMPARISON: 04/03/2018 FINDINGS: LUNGS: There is no mass, infiltrate, or acute pulmonary abnormality. PLEURAL SPACES: No evidence of pleural effusion or pneumothorax. MEDIASTINUM: The cardiomediastinal silhouette is within normal limits. BONES: No acute osseous abnormality. IMPRESSION: No acute cardiopulmonary pathology is evident. /[place]
--- NOTE | 2025-06-05 21:10 | NUR ---
[facility] CALLED AT THIS TIME, PT AWAITING TO BE SCREENED AT THIS TIME.
[2025-06-05 21:13] LABS: APPEARANCE,URINE CLEAR (CLEAR); GLUCOSE, URINE (UA) NEGATIVE (NEGATIVE); LEUKOCYTE ESTERASE ,URINE 500 Leu/uL (NEGATIVE); NITRATE,URINE NEGATIVE (NEGATIVE); OCCULT BLOOD,URINE +- (TRACE) (NEGATIVE)
[2025-06-05 21:15] LABS: ADD UA MICROSCOPIC YES
[2025-06-05 21:18] LABS: SQUAMOUS EPITHELIAL CELL,UR FEW /HPF (0-2); WBC CLUMP RARE /HPF (0-1)
[2025-06-05 21:20] LABS: AMPHET/METH SCREEN,URINE NEGATIVE (NEGATIVE); BARBITURATE SCREEN, URINE NEGATIVE (NEGATIVE); CANNABINOID SCREEN,URINE NEGATIVE (NEGATIVE); COCAINE SCREEN,URINE NEGATIVE (NEGATIVE)
[2025-06-05 21:45] VITALS: TEMP 98.1
[2025-06-06] MEDS ORDERED: NITR100C4 PO (00:06)
[2025-06-06 00:26] VITALS: BP 120/68; PULSE 90; RESP 18; O2SAT 99
--- NOTE | 2025-06-06 06:38 | EKG ---
[facility] Test Date: 2025-06-05 Test Time: 18:03:56 Pat Name: RAJNI MOTT Department: [facility] Room: Gender: F Hat Band Attacher: [id number] : [id number] Requested By: GILDA LOCK Order Number: [id number] Reading MD: Ambrosio Tripathi Measurements Intervals [place] Rate: 123 P: 82 DE: 99 QRS: 82 QRSD: 53 T: -60 QT: 275 QTc: 394 Interpretive Statements Sinus tachycardia Borderline repol abnormality, diffuse leads Compared to ECG 11/12/2024 20:28:34 No significant changes Electronically Signed On 06-06-2025 15:01:24 CDT by Ambrosio Tripathi Please click the below link to view image of tracing.
== END 2025-06-06 00:32 | disposition home or self-care (01) ==
LOC: EDH 17:53
DX: F41.9 Anxiety disorder, unspecified (principal); N39.0 Urinary tract infection, site not specified; I10 Essential (primary) hypertension; F17.200 Nicotine dependence, unspecified, uncomplicated; Z79.899 Other long term (current) drug therapy
CPT/HCPCS: 99285; 96365; 71045; 96361; 82550; 84484; 80048; 80305; 85025; 87086; 36415; 93005; 81001; G0481; J7030; J0696